=== PATIENT | female | born 1950 | race Hispanic/Latino ===

== ENCOUNTER 2023-12-20 17:07 | Emergency (ER) | payer MEDICARE ==
[~2023-12-20] VITALS: Ht 165.1 cm; Wt 65.8 kg
[2023-12-20] MEDS: FENTanyl CITRate PF 50 MCG/1 ML 2ML VIAL IVP ONE (17:34)
--- NOTE | 2023-12-20 18:14 | ERN ---
General Chief Complaint: Mechanical Fall Stated Complaint: FALL Time Seen by MD: 17:13 History of Present Illness Initial Comments 73-year-old female history of subarachnoid hemorrhage was receiving physical therapy and had a fall to the right side. She did bump her head. No loss of consciousness. No preceding symptoms. She complains of right shoulder pain. No other injuries. GCS at baseline, 14. No blood thinners. Allergies: Coded Allergies: diphenhydramine (Unverified Allergy, Unknown, RASH, 12/20/23) Home Meds Active Scripts Hydrocodone/Acetaminophen (Hydrocodon-Acetaminophen 5-325) 5 Mg-325 Mg Tablet, 1 TAB PO TIDP PRN for pain for 5 Days, #15 TAB 0 Refills Prov:DANGELO MENDOZA DO 12/20/23 Meloxicam (Meloxicam) 15 Mg Tablet, 15 MG PO DAILY PRN for PAIN for 10 Days, #10 TAB Prov:DANGELO MENDOZA DO 12/20/23 Past Medical History Past Medical History: Diabetes-Type II, High Cholesterol, Hypertension Medical History Other: left sided weakness Past Surgical History: Other ROS Dictation CONSTITUTIONAL: No chills, no fever, no weakness, no diaphoresis, no malaise. HEAD/FACE: No signs of trauma. EENT: No eye pain, no blurred vision, no tearing, no double vision, no ear pain, no ear discharge, no nose pain, no nasal congestion, no throat pain, no throat swelling, no mouth pain. RESPIRATORY: No cough, no orthopnea, no SOB, no stridor, no wheezing. CARDIOVASCULAR: No chest pain, no edema, no palpitations, no syncope. GASTROINTESTINAL/ABDOMINAL: No abdominal pain, no constipation, no diarrhea, no nausea, no vomiting. GENITOURINARY: No abnormal discharge, no dysuria, no frequent urination, no hematuria. No complaints of pain in the genitals. MUSCULOSKELETAL: Right shoulder pain INTEGUMENTARY: No change in color, no change in hair/nails, no dryness, no lesion, no lumps, no rash. NEUROLOGICAL/PSYCH: No anxiety, not depressed, no emotional problem, no headache, no numbness, no pre-existing deficit, no history of seizures, no tremors, no weakness. HEMATOLOGIC/LYMPHATIC: Not anemic, no history of blood clots, no apparent bleeding, no bruising, glands not swollen. All Systems Negative, Except as Noted. Physical Exam Physical Exam Dictation VITAL SIGNS: Reviewed. GENERAL APPEARANCE: Alert, mild distress due to pain. HEAD AND FACE: Non-traumatic. EYES: PERRL, pink conjunctivas, eyelid no trauma, anterior chamber clear. EARS: Pinnas intact and no signs of trauma or erythema. Ear canals clear and no discharge. TMs no erythema. NOSE: No discharge, no bleeding. OROPHARYNX: Mouth normal, teeth no caries, tongue pink. Pharynx clear, no erythema. Tonsils no exudates, no abscesses noted. Mucous membrane moist. NECK: Supple, non-tender, no thyromegaly, no masses, no JVD, no bruits. BREAST: Deferred. CHEST: No tenderness, no crepitus, no paradoxical movement, no retractions. LUNGS: Clear, well-ventilated, symmetric, no rales, no wheezing, no rhonchi, no stridor, good breath sounds bilaterally. HEART: Regular rate, regular rhythm, no murmur, no gallops. VASCULAR: No peripheral edema. ABDOMEN: Soft, positive bowel sounds, nondistended, no guarding, nontender, no rebound, no masses no hepatomegaly, no splenomegaly, no Ruffin's sign, no hernias. RECTAL: Deferred. GENITAL: Deferred. NEUROLOGICAL: Altered at baseline MUSCULOSKELETAL: Neck nontender, full range of motion, back nontender, full range of motion. EXTREMITIES: Nontender, full range of motion. SKIN: Color pink, dry, no turgor, no rash, no lacerations, no abrasions, no contusions. LYMPHATICS: Deferred. Results Laboratory and Microbiology Lab and Micro Result Laboratory Tests Test 12/20/23 17:57 Whole Blood Glucose 249 MG/DL (70-110) H MDM CC: R shoulder pain s/p fall, head injury Independent Historian: patient & EMS. Patient is poor historian due to previous SAH, but is able to communicate some. The history was supplemented by EMS. Comorbidities: hx SAH, DM, HTN VSS Initial concern for brain bleed, head injury, R shoulder fx vs dislocation No labs indicated CT head & cervical spine w/o contrast: no obvious brain bleed or fracture per my independent interpretation R shoulder XR per my independent interpretation shows R proximal humerus fracture. Patient received IV fentanyl for pain. Placed in a sling & swathn. NV intact to R arm. Able to flex & extend wrist, cross fingers, oppose pinky & thumb. Normal sensation to upper arm. Pelvis XR per my independent interpretation shows no acute fractures. WIll DC to orthopedic f/u. Will DC with prescription for Katy & meloxicam for pain. Patient's family is at bedside. He accepted the instructions and agrees with the plan. ED Course Orders Procedure Category Date Status Time Shoulder Comp 2+Vws Rt RAD 12/20/23 Resulted 17:13 Ct Head/Brain W/O CT 12/20/23 Resulted Contrast 17:13 Ct Cervical Spine W/O CT 12/20/23 Resulted Contrast 17:13 Fentanyl Citrate Pf PHA 12/20/23 Complete 0.05 Mg/Ml (Fentanyl 17:30 Pelvis 1-2vws RAD 12/20/23 Resulted 17:45 Current Medications Medications (Trade) Dose Ordered Sig/Naomi Route PRN Reason Start Time Stop Time Status Last Admin Dose Admin Fentanyl Citrate (FENTanyl CITRate PF 50 MCG/ 1 ML 2ML VIAL) 75 mcg ONCE ONCE IVP 12/20/23 17:30 12/20/23 17:31 DC 12/20/23 17:34 Vital Signs Date Time Temp Pulse Resp B/P (MAP) Pulse Ox O2 Delivery O2 Flow Rate FiO2 12/20/23 19:14 98.8 50 17 137/62 97 Room Air* 0 21 12/20/23 17:57 98.8 49 20 175/77 98 Room Air* 0 21 12/20/23 17:11 98.4 58 18 156/78 98 Room Air DX & DISP Disposition: Discharge Departure Impression: Primary Impression: Right humeral fracture Condition: Stable Scripts Hydrocodone/Acetaminophen (Hydrocodon-Acetaminophen 5-325) 5 Mg-325 Mg Tablet 1 TAB PO TIDP PRN for pain for 5 Days, #15 TAB 0 Refills Prov: DANGELO MENDOZA DO 12/20/23 Meloxicam (Meloxicam) 15 Mg Tablet 15 MG PO DAILY PRN for PAIN for 10 Days, #10 TAB Prov: DANGELO MENDOZA DO 12/20/23 Additional Instructions: Ella has a right humeral neck fracture. Keep her in the sling that she has been provided. She will need to follow up with an orthopedist. I have given you a referral to Dr. Schilling. I have prescribed meloxicam and Katy tabs to use as needed for pain. You can also apply ice to her shoulder for 20 minutes twice per day for swelling and pain. The CT scan of her head and cervical spine did not show any bleeding or new injuries. Her hip x-ray did not show any fractures. Please return to the emergency department if you have any concerns. DANGELO MENDOZA DO Dec 20, 2023 18:14
--- NOTE | 2023-12-20 18:24 | HMCIMG ---
SHOULDER COMP 2+VWS RT HISTORY: Dislocation COMPARISON: None TECHNIQUE: 2 images of right shoulder were obtained. FINDINGS: Right humeral neck fracture is seen with displacement. No definite dislocation is seen in this limited study. Degenerative changes are seen. IMPRESSION: 1. Findings as described above.
[2023-12-20] MEDS ORDERED: HYDR-4060 PO (18:44)
[2023-12-20] MEDS ORDERED: MELO-108 PO (18:44)
--- NOTE | 2023-12-20 18:48 | HMCIMG ---
CT HEAD/BRAIN W/O CONTRAST HISTORY: Status post fall COMPARISON: None TECHNIQUE: Multiple sequential axial images of the head were obtained from the base of the skull through vertex. Patient was not given contrast through intravenous route. FINDINGS: There is radiopaque density with streak artifacts in the right suprasellar cistern area. This is limiting evaluation. The ventricles and extraventricular CSF spaces are dilated consistent with cerebral atrophy. Nonspecific white matter changes seen. Ventricular dilatation may be central atrophy versus hydrocephalus. There is no midline shift, mass effect or herniation. No acute intracranial bleed is seen. Visualized portion of the paranasal sinuses are grossly within normal limits. IMPRESSION: 1. No acute intracranial bleed is seen. Atrophy white matter changes. Ventricular dilatation may be central atrophy versus hydrocephalus. CT was performed with one or more following dose reduction techniques: automated exposure control, adjustment of the mA and kv according to patient's size, or use of a iterative reconstruction technique.
--- NOTE | 2023-12-20 18:49 | HMCIMG ---
CT CERVICAL SPINE W/O CONTRAST HISTORY: Status post fall COMPARISON: None TECHNIQUE: Multiple sequential axial images of the cervical spine were obtained including post processing sagittal and coronal reconstruction images. Patient was not given contrast through intravenous route. FINDINGS: There are degenerative changes with cervical spine spondylosis. Disc space narrowing are seen at C4-5 and C5-6 levels. There is straightening of normal lordotic cervical curvature which may be related to muscle spasm or positioning. There is no loss of vertebral height. Evaluation for disc and cord pathology is limited with CT study. No evidence of fracture or dislocation is seen. IMPRESSION: 1. No fracture is seen. DJD with cervical spine spondylosis. CT was performed with one or more following dose reduction techniques: automated exposure control, adjustment of the mA and kv according to patient's size, or use of a iterative reconstruction technique.
--- NOTE | 2023-12-20 18:53 | HMCIMG ---
PELVIS 1-2VWS HISTORY: Status post fall] reduction COMPARISON: None TECHNIQUE: 2 images of pelvis were obtained. FINDINGS: The study is limited due to poor positioning. Bilateral hip joint space narrowing is seen. Patient is status post reduction. Alignment appears be grossly adequate. There is no acute displaced fracture or dislocation. Degenerative changes are seen. IMPRESSION: 1. Findings as described above.
[2023-12-20 19:14] VITALS: BP 137/62; PULSE 50; RESP 17; TEMP 98.8; O2SAT 97
== END 2023-12-20 19:14 | disposition home or self-care (01) ==
LOC: EDH 17:07
DX: S42.291A Other displaced fracture of upper end of right humerus, initial encounter for closed fracture (principal); E11.9 Type 2 diabetes mellitus without complications; E78.00 Pure hypercholesterolemia, unspecified; R51.9 Headache, unspecified; X58.XXXA Exposure to other specified factors, initial encounter; Y93.89 Activity, other specified; Y92.89 Other specified places as the place of occurrence of the external cause; Y99.8 Other external cause status
CPT/HCPCS: 99285; 70450; 96374; 82948; 72170; 73030; 72125; J3010

== ENCOUNTER → 2023-12-30 | Outpatient (CLI) | payer MEDICARE ==
[~2023-12-30] MED LIST: HYDR-4060 PO; MELO-108 PO
--- NOTE | 2023-12-30 16:16 | HMCIMG ---
ELBOW 2VWS RT HISTORY: Contusion COMPARISON: None TECHNIQUE: 2 images of right elbow were obtained. FINDINGS: There is no acute displaced fracture or dislocation. There is soft tissue swelling. Degenerative changes are seen. IMPRESSION: 1. Findings as described above.
== END | disposition home or self-care (01) ==
LOC: OIH 15:29
PROVIDERS: ATTEND Internal Medicine
DX: S50.01XD Contusion of right elbow, subsequent encounter (principal); M19.021 Primary osteoarthritis, right elbow; M79.89 Other specified soft tissue disorders; X58.XXXD Exposure to other specified factors, subsequent encounter
CPT/HCPCS: 73070

== ENCOUNTER 2024-12-08 20:24 | Emergency (ER) | payer MEDICARE ==
[~2024-12-08] VITALS: Ht 157.5 cm; Wt 55.3 kg
[2024-12-08 20:25] VITALS: BP 154/86; PULSE 99; RESP 16; TEMP 98.2
--- NOTE | 2024-12-08 21:03 | ERN ---
ED Note History of Present Illness Stated Complaint: LEFT ARM PAIN, FALL 12/07/24 Chief Complaint: Multiple Complaints Time Seen by MD: 20:30 Dictation: PATIENT IS A 74-YEAR-OLD FEMALE HERE WITH HER WITH A SPLINT TO THE LEFT ARM. PER THE , SHE WAS STANDING BY HERSELF APPROXIMATELY WEEK AGO WHEN SHE LOST HER BALANCE AND FELL TO HER LEFT SIDE. SHE HAS A HISTORY OF A PRIOR BRAIN ANEURYSM WITH A CLIPPING IN HIS A RIGHT HEMIPLEGIC FOR THE LAST 4-5 YEARS. PATIENT STATES HE TOOK HER TO [facility] LAST WEEK WHERE THEY DID X-RAYS AND TOLD HER THAT THERE WAS A QUESTIONABLE FRACTURE OF THE ARM PUT HER IN A SPLINT. NO REFERRAL WAS MADE TO ORTHOPEDICS. PATIENT'S STATES SHE HAS CONTINUED TO GET MORE SWELLING TO THE ARM AND ELBOW. SHE WENT TO SEE HER PRIMARY CARE DOCTOR, YESTERDAY AND WANTED A REFERRAL TO ORTHOPEDICS. SHE STATES THAT THEY WERE FOCUSED ON A URINARY TRACT INFECTION THAT THEY DIAGNOSED AND PLACED ON [place] HOWEVER, NO REFERRAL WAS MADE TO ORTHOPEDICS. PATIENT IS ABLE TO ANSWER SIMPLE QUESTIONS APPROPRIATELY STATES HER PAIN IS VERY LOW. Allergies: Coded Allergies: diphenhydramine (Unverified Allergy, Unknown, RASH, 12/20/23) Home Meds Active Scripts Hydrocodone/Acetaminophen (Hydrocodon-Acetaminophen 5-325) 5 Mg-325 Mg Tablet, 1 TAB PO TIDP PRN for pain for 5 Days, #15 TAB 0 Refills Prov:DANGELO MENDOZA DO 12/20/23 Meloxicam (Meloxicam) 15 Mg Tablet, 15 MG PO DAILY PRN for PAIN for 10 Days, #10 TAB Prov:DANGELO MENDOZA DO 12/20/23 Past Medical History Past Medical History: Diabetes-Type II, High Cholesterol, Hypertension Additional Past Medical Hx: left sided weakness DUE TO BRAIN ANEURYSM Surgical History: Other, Surgical History Other: BRAIN History: Not Applicable RN Note Reviewed/Agreed w/PFSH: Yes Review of System Dictation CONSTITUTIONAL: NEGATIVE EXCEPT FOR HPI HEAD/FACE: NEGATIVE EXCEPT FOR HPI EENT: NEGATIVE EXCEPT FOR HPI RESPIRATORY: NEGATIVE EXCEPT FOR HPI GASTROINTESTINAL/ABDOMINAL: NEGATIVE EXCEPT FOR HPI GENITOURINARY: NEGATIVE EXCEPT FOR HPI MUSCULOSKELETAL: NEGATIVE EXCEPT FOR HPI LEFT ARM PAIN SWELLING FROM PROXIMAL HUMERUS TO FOREARM INTEGUMENTARY: NEGATIVE EXCEPT FOR HPI NEUROLOGICAL/PSYCH: NEGATIVE EXCEPT FOR HPI HEMATOLOGIC/LYMPHATIC: NEGATIVE EXCEPT FOR HPI ALL SYSTEMS NEGATIVE, EXCEPT NOTED ABOVE. 13 POINT REVIEW OF SYSTEMS ASSESSED AND ALL NEGATIVE EXCEPT FOR ABOVE. Initial Vital Sign VS Vital Signs Date Time Temp Pulse Resp B/P (MAP) Pulse Ox O2 Delivery O2 Flow Rate FiO2 12/08/24 20:25 98.2 99 16 154/86 100 Room Air Physical Exam Dictation VITAL SIGNS REVIEWED GENERAL APPEARANCE: ALERT, ORIENTED X 3, NO ACUTE DISTRESS, WELL DEVELOPED, NOURISHED. MILD, REFUSED P.R.N. ANALGESIA AT THIS TIME. HEAD AND FACE: NON-TRAUMATIC. EYES: PERRL, PINK CONJUNCTIVAS, EYELID NO TRAUMA, ANTERIOR CHAMBER WITH ARCUS SENILIS. EARS: PINNAS INTACT AND NO SIGNS OF TRAUMA OR ERYTHEMA EAR CANALS CLEAR AND NO DISCHARGE TM NO ERYTHEMA NOSE: NO DISCHARGE, NO BLEEDING. OROPHARYNX: MOUTH NORMAL, TONGUE PINK, PHARYNX CLEAR,NO ERYTHEMA, TONSILS NO EXUDATES, NO ABSCESSES NOTED, MUCOUS MEMBRANE MOIST NECK: SUPPLE, NON-TENDER, NO THYROMEGALY, NO MASSES, NO JVD, NO BRUITS BREAST:DEFERRED CHEST:NO TENDERNESS, NO CREPITUS, NO PARADOXICAL MOVEMENT, NO RETRACTIONS LUNGS:CLEAR, WELL-VENTILATED, SYMMETRIC, NO RALES, NO WHEEZING, NO RHONCHI, NO STRIDOR, GOOD BREATH SOUNDS BILATERALLY HEART: REGULAR RATE, REGULAR RHYTHM, NO MURMUR, NO GALLOPS VASCULAR: NO PERIPHERAL EDEMA, ABDOMEN: SOFT, POSITIVE BOWEL SOUNDS, NONDISTENDED, NO GUARDING, NONTENDER, NO REBOUND, NO MASSES NO HEPATOMEGALY, NO SPLENOMEGALY, NO LONG'S SIGN, NO HERNIAS. RECTAL: DEFERRED GENITAL: DEFERRED NEUROLOGICAL: NORMAL SPEECH, CHRONIC RIGHT HEMIPLEGIA MUSCULOSKELETAL: N ECCHYMOSIS WITH PAIN SWELLING TO PROXIMAL LEFT HUMERUS DOWN TO HER MID LEFT FOREARM. POSTERIOR ELBOW IS SWOLLEN WITH A ECCHYMOSIS. DECREASED RANGE OF MOTION SECONDARY TO PAIN. SKIN: COLOR PINK, DRY, NO TURGOR, NO RASH, NO LACERATIONS, NO ABRASIONS, NO CONTUSIONS. LYMPHATIC: DEFERRED Results (Laboratory/Radiology) Laboratory/Radiology 2148/LEFT HUMERUS DEMONSTRATES A COMMINUTED DISTAL HUMERUS FRACTURE. Labs Reviewed?: Yes ED Course ED Course Orders Procedure Category Date Status Time Humerus 2+Vws Lt RAD 12/08/24 Resulted 20:59 Elbow Comp 3+Vws Lt RAD 12/08/24 Resulted 20:59 Forearm 2vws Lt RAD 12/08/24 Resulted 20:59 Ct Upper Ext W/O CT 12/08/24 Taken Contrast 21:52 *Nursing CPOE 12/08/24 Transmitted Communication: 21:52 Vital Signs Date Time Temp Pulse Resp B/P (MAP) Pulse Ox O2 Delivery O2 Flow Rate FiO2 12/08/24 20:25 98.2 99 16 154/86 100 Room Air 2150/SPOKE WITH DR. DILLON SAAVEDRA ORTHOPEDIC SURGEON. HE REVIEWED THE FILM. HE REQUESTED A CT OF THE LEFT UPPER EXTREMITY FOR SURGICAL REPAIR BEFORE DISCHARGING HOME. HE WANTS A POSTERIOR LONG-ARM SPLINT TO ARM AFTER CT AND DISCHARGE PAIN MEDICATION AND HAVE CALL HIS OFFICE TOMORROW FOR AN APPOINTMENT EARLY NEXT WEEK. Medical Decision Making MDM MDM: Differential diagnosis: Rationale: Tests considered and ordered secondary to shared decision making include: Previous outside records reviewed: Old ER visits. Risk of complication and/or morbidity or mortality of patient management: None Medications-Per medication reconciliation Need for hospitalization: Patient does not meet criteria for hospitalization. Need for emergency major/minor surgery: No There are no social concerns with this patient. Prescription drug management Prescriptions will include symptomatic care Patient's prior external medical records from other ER visits were reviewed by me as indicated. Prior testing and results from previous visits were reviewed. Prior tests were taken into account with medical decision making and resource utilization, independent historian/historians were used to obtain complete medical history. I independently interpreted the test that were performed, results were reviewed by me and considered findings on radiology if ordered. Medical management and examination interpretation discussions were had by me with other qualified healthcare professionals as indicated for the patient's care. DX & DISP Disposition: Discharge Departure Impression: Primary Impression: Left elbow fracture Condition: Stable Scripts Ketorolac Tromethamine (Ketorolac Tromethamine) 10 Mg Tablet 1 TAB PO TID for pain for 5 Days, #15 TAB 0 Refills Prov: RAH CONDE MD 12/08/24 Referrals: ROSETTE MARIEE MD (PCP) DILLON SAAVEDRA JACK P SCRIPT EDITOR Dec 08, 2024 21:03 RAH CONDE MD Dec 08, 2024 23:30
--- NOTE | 2024-12-08 22:33 | HMCIMG ---
EXAM: CR right Forearm, 2 View. CLINICAL HISTORY: LEFT FOREARM PAIN SWELLING STATUS POST FALL A WEEK AGO COMPARISON: None provided. FINDINGS: BONES: No acute fracture or aggressive appearing osseous lesion. JOINTS: No dislocation. The joint spaces are normal. SOFT TISSUES: The soft tissues are unremarkable. IMPRESSION: No acute osseous abnormality. /[place]
--- NOTE | 2024-12-08 22:34 | HMCIMG ---
EXAM: CR right elbow, 3 View. CLINICAL HISTORY: LEFT POSTERIOR ELBOW PAIN SWELLING STATUS POST FALL A WEEK AGO COMPARISON: None provided. FINDINGS: BONES: Fracture of the lateral humeral epicondyle which is comminuted. There is also fracture of the medial humeral epicondyle JOINTS: The joint spaces appear within normal limits. No dislocation. No radiographic evidence of a joint effusion. SOFT TISSUES: The soft tissues are unremarkable. IMPRESSION: Acute supracondylar fracture /[place]
--- NOTE | 2024-12-08 22:34 | HMCIMG ---
EXAM: CR right Humerus, 2 View. CLINICAL HISTORY: LEFT PROXIMAL HUMERUS PAIN STATUS POST FALL A WEEK AGO COMPARISON: None provided. FINDINGS: BONES: Fracture of the medial lateral humeral epicondyle JOINTS: No dislocation. The joint spaces are normal. SOFT TISSUES: The soft tissues are unremarkable. IMPRESSION: Acute supracondylar fracture /[place]
[2024-12-08] MEDS ORDERED: KETO10TA2 PO (23:31)
--- NOTE | 2024-12-08 23:50 | HMCIMG ---
EXAM: CT LEFT UPPER EXTREMITY without contrast CLINICAL HISTORY: Communited fracture on X-ray TECHNIQUE: Axial computed tomography images of the left upper extremity without intravenous contrast. CONTRAST: None. COMPARISON: Correlated with left elbow radiographs done earlier today. FINDINGS: There is a comminuted displaced intra-articular fracture of the distal end of the left humerus involving the lateral and medial epicondyles, including the trochlea and capitellum. Nondisplaced acute fracture in the coronoid process of the ulna. There is mild medial tilt and subluxation of the elbow joint with increased joint space at the radiohumeral articulation and reduced medial ulnohumeral joint space, concerning for lateral ligamentous complex injury. Moderate hemarthrosis is evident. Left glenohumeral and acromioclavicular articulations are maintained. The proximal radius and ulna are intact. There is ill-defined subcutaneous fat stranding in the posterior soft tissues of the left elbow without a discrete fluid collection or haematoma. The triceps and biceps tendons are grossly intact. IMPRESSION: Communited displaced intra-articular fracture of the distal end of the left humerus with moderate hemarthrosis. Nondisplaced acute fracture in the coronoid process of the ulna. There is mild medial tilt and subluxation of the elbow joint with increased joint space at the radiohumeral articulation and reduced medial ulnohumeral joint space, concerning for lateral ligamentous complex injury. Post-traumatic posterior soft tissue contusion around the left elbow. /[place]
== END 2024-12-08 23:43 | disposition home or self-care (01) ==
LOC: EDH 20:24
DX: S42.412A Displaced simple supracondylar fracture without intercondylar fracture of left humerus, initial encounter for closed fracture (principal); S42.442A Displaced fracture (avulsion) of medial epicondyle of left humerus, initial encounter for closed fracture; S52.045A Nondisplaced fracture of coronoid process of left ulna, initial encounter for closed fracture; E11.9 Type 2 diabetes mellitus without complications; E78.00 Pure hypercholesterolemia, unspecified; I10 Essential (primary) hypertension; X58.XXXA Exposure to other specified factors, initial encounter; Y93.89 Activity, other specified; Y92.89 Other specified places as the place of occurrence of the external cause; Y99.8 Other external cause status
CPT/HCPCS: 73060; 73080; 73090; 73200; 99284